=== PATIENT | male | born 1990 | race Hispanic/Latino ===

== ENCOUNTER 2019-09-23 09:54 | Day surgery (SDC) | payer OTHER ==
[~2019-09-23] VITALS: Ht 165.1 cm; Wt 111.9 kg
[~2019-09-23 09:54] MED LIST: KETOROLAC 60 MG/2 ML VIAL (J1885) As Ordered ONE; LIDOCAINE 2% INJ 100 MG/5 ML SDV (FOR ANES.) As Ordered ONE; LR 1,000 ML IV ONE; MIDAZOLAM INJ 2 MG/2 ML VIAL (J2250) As Ordered ONE; ONDANSETRON 4MG/2ML VIAL (J2405) As Ordered ONE; ceFAZolin SOD 2 GM in IV 1 EA IV ONE; fentaNYL 100 MCG/2 ML INJECTION (J3010) As Ordered ONE; propofoL 200 MG/20 ML VIAL As Ordered ONE
[2019-09-23] MEDS ORDERED: dexameTHASONE 4 MG/ML 1ML VIAL (J1100) As Ordered ONE (12:00)
[2019-09-23] MEDS ORDERED: LIDOCAINE 1% SDV INJ 30 ML VIAL As Ordered ONE (12:00)
[2019-09-23] MEDS ORDERED: BUPIVACAINE HCL 0.5% 30 ML VIAL As Ordered ONE (12:01)
[2019-09-23] MEDS ORDERED: KETAMINE HCL 200 MG/20 ML VIAL As Ordered ONE (12:27)
[2019-09-23] MEDS ORDERED: propofoL 200 MG/20 ML VIAL As Ordered ONE (12:52)
[2019-09-23] MEDS ORDERED: LR 1,000 ML IV SCH (14:15)
[2019-09-23] MEDS ORDERED: ONDANSETRON 4MG/2ML VIAL (J2405) IV PRN (14:15)
[2019-09-23] MEDS ORDERED: METOCLOPRAMIDE INJ 10MG/2ML VIAL (J2765) IV PRN (14:15)
[2019-09-23] MEDS ORDERED: PERCOCET 5MG/325MG TAB PO PRN (14:15)
[2019-09-23] MEDS ORDERED: fentaNYL 100 MCG/2 ML INJECTION (J3010) IV PRN (14:15)
[2019-09-23 14:23] VITALS: BP 141/80
--- NOTE | 2019-09-24 10:13 | RO ---
DATE OF PROCEDURE: 09/23/2019 PREOPERATIVE DIAGNOSIS: Left gastrocnemius equinus. POSTOPERATIVE DIAGNOSIS: Left gastrocnemius equinus. PROCEDURE: Left gastrocnemius recession. SURGEON: Nikita Dee DPM PINKING MACHINE OPERATOR: ANESTHESIA: Monitored anesthesia care (MAC). Preop injection of 20 mL of 1:1 mixture of 1% lidocaine plain and 0.5% Marcaine plain. ESTIMATED BLOOD LOSS: Minimal. MATERIALS: #3-0 and #4-0 Vicryl, #4-0 nylon. INJECTABLE: None. COMPLICATIONS: None. Marvel Escoto is a 29-year-old male who presents to [facility] with chronic left Achilles and calf pain. He presents today for surgical release of tight tendon. The patient side and site were identified in preop holding area. Consent was reviewed and obtained. The risks, complications and alternatives to the procedure were explained to the patient in detail and all questions were answered. DESCRIPTION OF PROCEDURE: The patient was brought to the operating room and placed on the operating room table in prone position. Monitored anesthesia care was delivered by the anesthesia team. Preop injection of 20 mL of 1:1 mixture of 1% lidocaine plain and 0.5% Marcaine plain were injected to the left calf. The left calf was prepped and draped in a normal sterile fashion. Tourniquet was applied to the left thigh and inflated to 300 mmHg. A linear incision was drawn at the center of the calf just distal to the musculotendinous junction. This was carried through with a #15 blade. Dissection was carried until the tendon sheath was identified. A linear incision was made and following this the transverse release of the gastrocnemius tendon was performed, taking care not to cut into the muscle of the soleus underneath. Care was taken to avoid the sural nerve. Improved dorsiflexion was noted immediately. The site was irrigated with normal saline. Deep closure was performed with #3-0 Vicryl, subcutaneous closure with #4-0 Vicryl, and skin closure with #4-0 nylon. A posterior splint was applied following the sterile dressings. He was brought to the postanesthesia care unit (PACU) with vital signs stable and neurovascular status intact He will be non-weightbearing to the left lower extremity. He will followup in the office in two days.
== END 2019-09-23 15:10 | disposition home or self-care (01) ==
LOC: M SDC 09:54
PROVIDERS: ATTEND Podiatrist Foot & Ankle Surgery
DX: M76.62 Achilles tendinitis, left leg (principal); M67.02 Short Achilles tendon (acquired), left ankle; Z91.013 Allergy to seafood; F17.218 Nicotine dependence, cigarettes, with other nicotine-induced disorders
CPT/HCPCS: 27687; 97116; J0690; J1100; J1885; J2250; J2405; J3010

== ENCOUNTER → 2021-03-20 | Outpatient (CLI) | payer OTHER | LOC: M LAB 06:55 | PROVIDERS: ATTEND Nurse Practitioner Family | DX: E29.1 Testicular hypofunction (principal) ==